=== PATIENT | female | born 1965 | race Caucasian/White ===

== ENCOUNTER 2017-01-26 01:24 | Emergency (ER) | payer OTHER ==
[~2017-01-26] VITALS: Ht 157.5 cm; Wt 112.1 kg
[~2017-01-26 01:24] MED LIST: MOTRIN800 MG PO; PERCOCET 5/31 TABLET PO; PRILOSEC40 MG PO
[2017-01-26 02:08] LABS: HEMATOCRIT 42.2 % (36.0-46.0); MCH 28.3 PG (29.0-34.0); MCHC 32.2 G/DL (30.0-36.0); MCV 87.7 FL (83-99); PLATELET COUNT 222 K/uL (156-360); RBC DIS.WIDTH-CV 12.8 % (11.8-14.6); RBC DIS.WIDTH-SD 41.2 % (39-53); RED BLOOD COUNT 4.81 M/uL (3.80-5.20); WHITE BLOOD COUNT 9.5 K/uL (4.1-10.2)
[2017-01-26 02:19] LABS: CHLORIDE 107 mEq/L (99-109); POTASSIUM 4.1 mEq/L (3.7-5.4); SODIUM 140 mEq/L (136-147)
[2017-01-26 02:20] LABS: GLUCOSE 101 mg/dL (70-99)
[2017-01-26 02:22] LABS: ANION GAP 8 MEQ/L (2-14)
[2017-01-26 02:23] LABS: D-DIMER ELISA 0.75 mg/L FEU (< 0.57); PROTHROMBIN TIME 10.5 (9.2-11.2); PTT 27.5 (25-32)
[2017-01-26 02:24] LABS: GFR ESTIMATE (CALCULATED) > 59 mL/min/
[2017-01-26 02:25] LABS: UREA NITROGEN (BUN) 14 mg/dL (9-23)
[2017-01-26 02:35] LABS: TROP-I INTERPRETATION NEGATIVE; TROPONIN-I < 0.01 ng/mL (0.0-0.30)
[2017-01-26 04:24] LABS: TROP-I INTERPRETATION NEGATIVE; TROPONIN-I < 0.01 ng/mL (0.0-0.30)
[2017-01-26 05:03] VITALS: BP 135/87
== END 2017-01-26 05:07 | disposition home or self-care (01) ==
LOC: EME 01:24
PROVIDERS: Emergency Medicine
DX: R07.9 Chest pain, unspecified (principal); R20.2 Paresthesia of skin; M79.602 Pain in left arm; I45.10 Unspecified right bundle-branch block; R79.1 Abnormal coagulation profile; Z82.49 Family history of ischemic heart disease and other diseases of the circulatory system; Z90.49 Acquired absence of other specified parts of digestive tract; Z87.891 Personal history of nicotine dependence
CPT/HCPCS: 71020; 71275; 80048; 84484; 85027; 85379; 85610; 85730; 93005; 99281; 99285

== ENCOUNTER → 2018-01-23 | Outpatient (CLI) | payer OTHER ==
[~2018-01-23] MED LIST changes: +OMEPRAZOLE40 M1 PO; +OXYCODONE HCL10 MG PO; +VITAMIN D2000 UNI1 PO
== END | disposition home or self-care (01) ==
LOC: CDC 11:39
DX: Z01.810 Encounter for preprocedural cardiovascular examination (principal); R92.8 Other abnormal and inconclusive findings on diagnostic imaging of breast; I45.4 Nonspecific intraventricular block
CPT/HCPCS: 93000

== ENCOUNTER 2018-01-28 10:01 | Day surgery (SDC) | payer OTHER ==
[~2018-01-28] VITALS: Ht 157.5 cm; Wt 95.3 kg
[2018-01-28 10:22] VITALS: BP 142/86
[2018-01-28] MEDS ORDERED: ENDOCET 5-3251 EACH PO (14:54)
[2018-01-28 16:17] VITALS: BP 143/79
[2018-01-28 16:20] VITALS: BP 129/82
[2018-01-28 17:20] VITALS: BP 129/82
== END 2018-01-28 17:35 | disposition home or self-care (01) ==
LOC: SDC 10:01
PROC: 0HBU0ZZ Excision of Left Breast, Open Approach (ICD-10-PCS; principal; 2018-01-28)
DX: N60.92 Unspecified benign mammary dysplasia of left breast (principal); F06.4 Anxiety disorder due to known physiological condition; Z79.891 Long term (current) use of opiate analgesic; M47.816 Spondylosis without myelopathy or radiculopathy, lumbar region; E66.01 Morbid (severe) obesity due to excess calories; Z68.38 Body mass index [BMI] 38.0-38.9, adult; G47.30 Sleep apnea, unspecified; K21.9 Gastro-esophageal reflux disease without esophagitis; Z87.891 Personal history of nicotine dependence
CPT/HCPCS: 88307; J0330; J0690; J1100; J1170; J1885; J2250; J2405; J2710; J7643; Q0175; S0020

== ENCOUNTER 2018-04-03 03:37 | Emergency (ER) | payer OTHER ==
[~2018-04-03] VITALS: Ht 157.5 cm; Wt 109.7 kg
[~2018-04-03 03:37] MED LIST changes: +ENDOCET 5-3251 EACH PO
[2018-04-03 05:35] VITALS: BP 163/95
== END 2018-04-03 05:35 | disposition home or self-care (01) ==
LOC: EME 03:37
PROC: 3E0234Z Introduction of Serum, Toxoid and Vaccine into Muscle, Percutaneous Approach (ICD-10-PCS; principal; 2018-04-03)
DX: M25.561 Pain in right knee (principal); S80.811A Abrasion, right lower leg, initial encounter; W01.0XXA Fall on same level from slipping, tripping and stumbling without subsequent striking against object, initial encounter; Z23 Encounter for immunization; G89.29 Other chronic pain; Z91.040 Latex allergy status; Z88.5 Allergy status to narcotic agent
CPT/HCPCS: 73564; 73590; 99281; 99284